=== PATIENT | male | born 1940 | race Hispanic/Latino ===

== ENCOUNTER → 2018-01-05 | Outpatient (CLI) | payer OTHER ==
[~2018-01-05] MED LIST: ASPIRIN81 MG PO; BENICAR40 MG PO; CARVEDILOL3.125 MG PO; CRESTOR20 MG PO; DAILY VITAMIN1 EAC3 PO; DIATRIZOATE MEGL/DIATRIZOA SOD 30 ML BTL PO ONE; DOXAZOSIN MESYLA2 MG PO; FISH OIL PO; FUROSEMIDE40 MG PO; IOPAMIDOL 370 MG/ML 200 ML INFUS..BTL INJ ONE; LANTUS 3ML100 UNITS/ SQ; NIFEDICAL XL30 MG PO; NOVOLOG100 UNIT/1 SQ; SINGULAIR10 MG PO; SODIUM CHLORIDE 0.9% 250ML 500 ML ONE; SODIUM CHLORIDE 0.9% 50ML 50 ML ONE; SYMBICORT INH; VENTOLIN HFA18 GM IH; ZOLPIDEM TARTRA10 MG PO
[2018-01-05 18:23] LABS: CREATININE, SERUM 1.29 mg/dL (0.72-1.25)
--- NOTE | 2018-01-05 19:42 | Diagnostic Imaging Report ---
PROCEDURE: CT ABDOMEN AND PELVIS WITH CONTRAST TECHNIQUE: The abdomen and pelvis were scanned utilizing a multidetector helical scanner from the diaphragm to the lesser trochanter after the IV administration of 100 cc of Isovue 370 and the oral administration of dilute Gastrografin. Coronal and sagittal multiplanar reformations were obtained. COMPARISON: None. INDICATIONS: ABDOMINAL DISTENSION FINDINGS: LOWER THORAX: Lung bases are grossly clear. Moderate cardiomegaly. Small pericardial effusion. HEPATOBILIARY: Normal hepatic size and contour. No focal hepatic lesions. No biliary ductal dilation. Cholecystectomy clips. SPLEEN: No splenomegaly. PANCREAS: No focal masses or ductal dilatation. Moderate atrophy of the pancreas, with fatty replacement, worse in the pancreatic head ADRENALS: No adrenal nodules. KIDNEYS/URETERS: No hydronephrosis, stones, or solid mass lesions. PELVIC ORGANS/BLADDER: Bladder shows no wall thickening or focal lesions. The prostate is enlarged, measuring approximately 5.7 x 4.7 x 6.1 cm (estimated volume 85 cc). PERITONEUM / RETROPERITONEUM: No free air or fluid. LYMPH NODES: No lymphadenopathy. VESSELS: Celiac trunk, superior and inferior mesenteric, and bilateral renal arteries are patent. Portal, superior mesenteric, and splenic veins are patent. Atherosclerotic calcification of the abdominal aorta. Atherosclerotic plaque at the origin of the SMA and left renal artery without significant luminal reduction GI TRACT: No bowel dilation or evidence of obstruction. No pericolonic inflammatory changes. Appendix is identified, and normal in caliber. BONES AND SOFT TISSUES: Diffuse heterogeneous mottled appearance of vertebral bodies in the lower thoracic, and lumbosacral spine (for example sagittal image 71). Degenerative disc changes in the lumbosacral spine, predominantly L4-L5. No aggressive lytic lesion. Bilateral fat containing inguinal hernias. Subcutaneous injection sites in the anterior lower abdominal/upper pelvic wall bilaterally. IMPRESSION: 1. No acute abdominopelvic abnormalities. Bowel is unremarkable, without dilation or obstruction. 2. Findings in the spine may represent metastatic disease, particularly prostate,, given the patient's prostatomegaly. Other neoplasms with similar appearance include lungs and lymphoma. Correlate with PSA. Bone scan and spine MRI are recommended for further evaluation. Bipin Warner M.D. Dictated by: Bipin Warner M.D. on 01/05/2018 at 19:43 Electronically approved by: Bipin Warner M.D. on 01/05/2018 at 19:43
== END ==
LOC: CT 17:18
PROVIDERS: ATTEND Internal Medicine Gastroenterology
DX: R10.13 Epigastric pain (principal); R10.84 Generalized abdominal pain; R14.0 Abdominal distension (gaseous); E10.9 Type 1 diabetes mellitus without complications; I10 Essential (primary) hypertension; E66.3 Overweight; Z71.3 Dietary counseling and surveillance
CPT/HCPCS: 36415; 74177; 82565; 84520; J7050; Q9967